=== PATIENT | female | born 1950 | race Caucasian/White ===

== ENCOUNTER 2018-09-29 16:11 | Inpatient (IN) | payer MEDICAID ==
[~2018-09-29] VITALS: Ht 160 cm; Wt 90.4 kg
[2018-09-29] MEDS ORDERED: PRAZOSIN HCL5 MG PO (16:59)
[2018-09-29] MEDS ORDERED: LIPITOR40 MG PO (17:01)
[2018-09-29] MEDS ORDERED: SERTRALINE HCL50 MG PO (17:02)
[2018-09-29] MEDS ORDERED: LISINOPRIL2.5 MG PO ×2 (17:03→19:26)
[2018-09-29] MEDS ORDERED: VITAMIN D2000 UNIT PO (17:04)
[2018-09-29] MEDS ORDERED: BENZTROPINE MESY2 MG PO ×2 (17:04→19:27)
[2018-09-29] MEDS ORDERED: JANUMET XR 1001 EACH PO ×2 (17:05→19:29)
[2018-09-29] MEDS ORDERED: ZYPREXA20 MG PO ×2 (17:06→19:31)
[2018-09-29] MEDS ORDERED: CLARITIN10 MG PO ×2 (17:07→19:31)
[2018-09-29] MEDS ORDERED: FEOSOL325 M1 PO (17:09)
[2018-09-29] MEDS ORDERED: LIPITOR80 MG PO (17:11)
[2018-09-29] MEDS ORDERED: ASPIR 8181 MG PO (17:12)
[2018-09-29] MEDS ORDERED: MACRODANTIN100 MG PO (17:13)
[2018-09-29 18:25] VITALS: BP 133/76
[2018-09-29] MEDS ORDERED: ZOLOFT50 MG PO (19:25)
[2018-09-29] MEDS ORDERED: VITAMIN D3400 UNIT PO (19:28)
[2018-09-29] MEDS ORDERED: NAMZARIC 7 MG-1 EACH PO (19:33)
[2018-09-29] MEDS ORDERED: IRON325 PO (19:34)
[2018-09-29 21:15] VITALS: BP 133/73
--- NOTE | 2018-09-29 23:54 | NUR ---
PATIENT ARRIVED ON DAY SHIFT AT 1824 PER WHEELCHAIR VAN FROM [facility]. PATIENT DX IS TIA/RIGHT HEMEPARESIS WITH DYSARTHIA. PATIENT SPEAKS SOFTLY AND SLOWLY. PATIENT ABLE TO MAKE NEEDS KNOWN AND FOLLOWS COMMANDS WITHOUT DIFFICULTY. SWALLOWED BEDTIME MEDICATIONS WHOLE TWO A TIME WITH WATER WITHOUT DIFFICULTY. PATIENT IS ILLITERATE. DAUGHTER HAS DURABLE POWER OF ASSISTANT HALL DIRECTOR. REHAB ADMISSION TOOL COMPLETED WITH ASSISTANCE OF DAUGHTER LEX PATIENT AND MEDICAL RECORDS. PATIENT ISN'T A GOOD HISTORIAN AT TIMES. DENIES DISCOMFORT. SNACK PROVIDED. HAS HOME MEDICATIONS STORED IN PHARMACY.
[2018-09-30 05:10] LABS: HEMATOCRIT 37.8 % (37.0-47.0); HEMOGLOBIN 12.8 gm/dL (12.0-15.0); MCH 28.9 pg (26.0-34.0); MCHC 33.8 g/dL (28.0-37.0); MCV 85.7 fL (80.0-100.0); MPV 8.6 fl. (7.2-11.1); RBC 4.41 mil/uL (4.20-5.00); RDW-CV 14.6 % (10.5-14.5); WBC 7.6 thou/uL (4.0-11.0)
[2018-09-30 05:17] LABS: CALCIUM 9.3 mg/dL (8.5-10.1); CREATININE 0.8 mg/dL (0.6-1.3); POTASSIUM 3.4 mmol/L (3.5-5.1)
--- NOTE | 2018-09-30 05:27 | NUR ---
RESTED QUIETLY. TURNS SELF IN BED. NO COMPLAINTS VOICED. HOURLY ROUNDING IN PROGRESS.
--- NOTE | 2018-09-30 13:54 | NUR ---
AM ASSESSMENT AND VITAL SIGNS COMPLETED DOCUMENTED. PT IS VERY SOFT SPOKEN AND HAS SOME DIFFICULTY WITH WORD FINDING. PT ALSO HAS A HX OF DEMENTIA AND BIPOLAR AND IS ORIENTED TO HERSELF ONLY. PT STATES SHE IS WAITING FOR HER DAUGHTER TO PICK HER UP AND TAKE HER TO A DIFFERENT HOSPITAL. PT REORIENTED BUT DOESN'T RETAIN THE INFORMATION. FALL PRECAUTIONS AND HOURLY ROUNDING CONTINUE.
[2018-09-30 20:05] VITALS: BP 136/60
--- NOTE | 2018-09-30 20:05 | NUR ---
RESTING QUIETLY IN BED AND WATCHING TV. DENIES DISCOMFORT. SNACK PROVIDED.
--- NOTE | 2018-10-01 05:36 | NUR ---
RESTED QUIETLY. NO COMPLAINTS VOICED. HOURLY ROUNDING IN PROGRESS.
[2018-10-01 08:00] VITALS: BP 125/67
--- NOTE | 2018-10-01 18:48 | NUR ---
AM ASSESSMENT AND VITAL SIGNS COMPLETED DOCUMENTED. PT WAS INCONTINENT OF A LARGE BM THIS AM AND CONTINENT OF ANOTHER BM LATER IN THE MORNING. PT IS PLEASANT AND COOPERATIVE, NO C/O PAIN OR DISCOMFORT. FALL PRECAUTIONS AND HOURLY ROUNDING CONTINUE.
[2018-10-01 19:40] VITALS: BP 114/53
--- NOTE | 2018-10-02 00:44 | NUR ---
ASSUMED CARE @ 1934-10/01-TUESDAY.HOB UP.WATCHING TV.BED ALARM PUT ON @ 1934. WORD FINDING DIFFICULTY PERSISTING.SBA FOR ALL TRANSFERS & TOILETING.WEARS PULL UPS.WANTS BATHRROM LIGHT ON & SIDERAILS X2 UP @ NIGHT.ON HOURLY ROUNDS.
--- NOTE | 2018-10-02 05:20 | NUR ---
SLEPT LATE SINCE 2300 & SLEPT GOOD ALL NIGHT.TURNS SELF @ NIGHT.BRP W/ SBA X2. PULL UPS CHANGED 1X @ 0020.TOOK ALL DIET COLA & ORANGE SHERBET HS SNACKS. BED ALARM SOUNDED ONCE ONLY @ 2019.PATIENT SITTING SIDE OF BED @ THIS TIME- READY TO STAND UP TO GO TO BATHROOM.INSTRUCTED TO CALL NURSE FOR ASSIST TO AMBULATE TO BATHROOM.
[2018-10-02 07:49] VITALS: BP 141/68
--- NOTE | 2018-10-02 13:13 | NUR ---
Nutrition: Pt admitted to Rehab s/p TIA. PMHx: MR, dementia. Pt having word-finding trouble. Consult received for new pt, DM. +BM today, eating 90-100% of CHO controlled diet. Wt: 202#. BG 151, no albumin recorded. No nutrition interventions needed at this time. Low risk.
--- NOTE | 2018-10-02 14:54 | NUR ---
SW met with pt to complete initial assessment, introduce self, and SW role. Pt alert, oriented, resting in bed. Pt lives alone. Pt dtr is supportive. Pt has HH services, pt did not recall name of agency. Pt has a stander walker (no wheels). DON called and spoke with pt dtr Sheryl [phone] and Sheryl wants to explore FDC options. SW discussed some [facility] options that may work with Medicaid and the dtr plans to contact a few of them for the possibility that pt may need ELIZABETH in the future. SW to continue to follow to assist with safe dc planning.
--- NOTE | 2018-10-02 18:07 | NUR ---
pt has participated with therapies and ambulates with walker,gaitbelt and min assist of 1. pt continent of bladder and wears pull ups.pt denies pain or nausea. pt is plesant but quiet,alert and orientated.pt eats meals in dinningroom.hourly rounding continues.
[2018-10-02 20:00] VITALS: BP 123/58
--- NOTE | 2018-10-03 05:16 | NUR ---
ASSUMED PT CARE AT 1930 PT ALERT AND ORIENTED X4, POLITE AND COOPERATIVE WITH CARES. PT TAKES PILLS WHOLE WITH WATER WITHOUT DIFFICULTY. PT ALREADY IN BED ASLEEP AT SHIFT CHANGE. PT WEARS PULLUPS. UP TO BATHROOM WITH ASSIST OF ONE, GAIT BELT AND WALKER. NO COMPLAINTS OF PAIN. USES CALL LIGHT APPROPRIATELY. HOURLY ROUNDING IN PROGRESS, WILL CONTINUE TO MONITOR.
[2018-10-03 07:44] VITALS: BP 123/73
--- NOTE | 2018-10-03 18:22 | NUR ---
PT HAS WORKED WITH THERAPIES AND AMBULATED WITH WALKER AND MIN ASSIST WITH GAITBELT TO AND FROM DINNINGROOM. PT TOLERATES MEALS AND IS ENCOURAGED TO DRINK FOR GOOD OUTPUT. PT WAS BLADDER SCANNED THIS AFTERNOON WITH 214ML URINS NOTED PER REQUEST.PT DOES CALL FOR ASSIST TO BATHROOM AND IS ABLE TO CLEASNE SELF AND ADJUST CLOTHING. PT DENIES PAIN OR NAUSEA AND IS ALERT AND ORIENTATED. HOURLU ROUNDING CONTINUES.
[2018-10-03 20:23] VITALS: BP 172/58
--- NOTE | 2018-10-03 20:25 | NUR ---
SITTING UP IN RECLINER WATCHING TV. DENIES DISCOMFORT. AMBULATED TO THE BATHROOM WITH SBA, GAITBELT, WALKER. DOES OWN HYGIENE AND CLOTHING ADJUSTMENTS. SNACK PROVIDED.
--- NOTE | 2018-10-04 05:14 | NUR ---
RESTED QUIETLY ALL NIGHT. NO COMPLAINTS VOICED. HOURLY ROUNDING IN PROGRESS.
[2018-10-04 08:00] VITALS: BP 153/72
--- NOTE | 2018-10-04 11:14 | NUR ---
AM ASSESSMENT AND VITAL SIGNS COMPLETED DOCUMENTED. PT HAS BEEN ALERT AND PLEASANT, COOPERATIVE WITH THERAPIES THIS AM. FALL PRECAUTIONS AND HOURLY ROUNDING CONTINUE.
--- NOTE | 2018-10-04 16:54 | NUR ---
SW met with pt to review team conference summary and plan for pt to remain on rehab unit at least another week with team to reassess pt length of stay during team conference next Wednesday 10/11. Pt okay with plan. SW called pt dtr Sheryl and reviewed team conference summary, plan to reteam, and team's recommendation for SHELTER at dc. Pt dtr Sheryl called a couple of places but they do not accept Medicaid, pt dtr did not want to look at [facility] although facility is SHELTER, pt felt it was more "like a assisted" and pt dtr wants pt to be around more indepenent residents in an SHELTER that was not total care. SW to present more SHELTER options to pt dtr this week and SW to continue to follow to assist with safe dc planning.
--- NOTE | 2018-10-04 18:45 | NUR ---
PT REMAINS STABLE AND WITHOUT COMPLAINTS. PT AMBULATES TO THE DINING ROOM FOR MEALS AND INTERACTS WITH OTHERS DURING MEALS. PT IS WEARING A BRIEF FOR OCCASIONAL INCONTINENCE OF BOWEL AND BLADDER, NO ACCIDENTS THIS SHIFT.
[2018-10-04 20:10] VITALS: BP 129/51
--- NOTE | 2018-10-05 05:04 | NUR ---
ASSUMED PT CARE AT 1930. PT ALERT AND ORIENTED X4, POLITE AND COOPERATIVE WITH CARES. PT TAKES PILLS WHOLE WITH WATER WITHOUT DIFFICULTY. PT WEARS PULLUPS. PT UP TO BATHROOM WITH ASSIST OF ONE, GAIT BELT AND WALKER. NO COMPLAINTS OF PAIN. PT SLEPT WELL OVERNIGHT. USES CALL LIGHT APPROPRIATELY. HOURLY ROUNDING IN PROGRESS, WILL CONTINUE TO MONITOR.
[2018-10-05 08:02] VITALS: BP 136/60
--- NOTE | 2018-10-05 15:02 | NUR ---
AM ASSESSMENT AND VITAL SIGNS COMPLETED DOCUMENTED. PT HAS BEEN PLEASANT AND COOPERATIVE, PARTICIPATES IN ALL THERAPIES. PRN TYLENOL GIVEN FOR C/O DELATORRE STRAIN AFTER PT SESSION, PT VERBALIZED ADEQUATE PAIN RELIEF. FALL PRECAUTIONS AND HOURLY ROUNDING CONTINUE.
--- NOTE | 2018-10-05 18:23 | NUR ---
PT CONTINUES TO USE THE CALL LIGHT APPROPRIATELY AND CONTINUES TO MAKE PROGRESS TOWARD DISCHARGE GOALS.
[2018-10-05 20:26] VITALS: BP 127/56
--- NOTE | 2018-10-06 05:25 | NUR ---
ASSUMED CARES AT 1920. ALERT AND ORIENTED. PLEASANT. DENIED ANY NEED FOR PAIN MEDS. TOOK PILLS WHOLE WITHOUT ISSUES. MIN ASSIST WITH GAIT BELT AND WALKER. UP TO BATHROOM. DOES OWN CARES. HS SNACK GIVEN. SLEPT WELL MOST OF THE NIGHT. CALL LIGHT IN REACH AND BED ALARM ON.
[2018-10-06 07:30] VITALS: BP 119/75
--- NOTE | 2018-10-06 18:14 | NUR ---
PT HAS EATEN IN DINNINGROOM AND CALLS FOR ASSIST NEEDS. PT DENIES PAIN. PT REMAINS CONTINENT OF B+B. PT AMBULATES WITH WALKER GAITBELT AND MIN ASSIST OF 1PT REMAINS ALERT AND ORIENTATED.HOURLY ROUNDING CONTINUES.
[2018-10-06 20:00] VITALS: BP 114/67
--- NOTE | 2018-10-07 05:23 | NUR ---
ASSUMED CARES AT 1920. ALERT AND ORIENTED. PLEASANT. C/O LEFT SHOULDER/ARM PAIN. APAP GIVEN. MIN ASSIST WITH GAIT BELT AND WALKER. UP TO BATHROOM. DID HAVE LOOSE STOOLS X 3 AT BEDTIME. NEEDED ASSIST WITH PERICARES. SLEPT WELL REST OF THE NIGHT. CALL LIGHT IN REACH AND BED ALARM ON.
[2018-10-07 08:00] VITALS: BP 133/72
--- NOTE | 2018-10-07 16:37 | NUR ---
ASSUMMED CARE OF PT AT 0730, ALERT, FORGETFUL, FLAT AFFECT, TRANSFERS WITH ASSIST OF 1, GB WALKER CUEING, AMBULATED TO DININGROOM, VOIDS PER BATHROOM, DENIED PAIN THIS SHIFT, TAKING FOOD AND FLUIDS WELL, NEEDED ENCOURAGEMENT TO SIT IN CHAIR, WANTS TO LAY IN BED RATHER THAN BE UP IN CHAIR, PARTICIPATED IN ALL THERAPIES, HOURLY ROUNDING COMPLETED, ASSESSMNET COMPLETE, WILL CONTINUE TO MONITOR.
[2018-10-07 19:30] VITALS: BP 129/53
--- NOTE | 2018-10-07 19:35 | NUR ---
RESTING QUIETLY IN BED. TYLENOL GIVEN FOR COMPLAINT OF PAIN IN LEFT SHOULDER. SNACK PROVIDED.
--- NOTE | 2018-10-08 05:16 | NUR ---
NO FURTHER COMPLAINT OF PAIN. UP X ONE DURING THE NIGHT TO THE BATHROOM. HAD A SMALL LOOSE STOOL. DID OWN INÉS CARE AND CLOTHING ADJUSTMENTS. AMBULATES WITH SBA, GAITBELT, WALKER. HOURLY ROUNDING IN PROGRESS.
[2018-10-08 08:17] VITALS: BP 122/62
--- NOTE | 2018-10-08 16:34 | NUR ---
UP TO RESTROOM WITH ROLLING WALKER STAND BY ASSIST. REQUIRES NO HELP WITH HYGIENE. ALERT AND ORIENTED X 4, DENIES COMPLAINTS OF PAIN OR DISCOMFORT. NO SIGN OF DISTRESS. CONT. WITH CURRENT PLAN OF CARE.
[2018-10-08 20:00] VITALS: BP 102/48
--- NOTE | 2018-10-08 20:00 | NUR ---
RESTING QUIETLY IN BED AND WATCHING TV. TYLENOL GIVEN FOR LEFT SHOULDER PAIN. SNACK PROVIDED. AMBULATED TO THE BATHROOM WITH SBA, GAITBELT, WALKER. DOES OWN HYGIENE AND CLOTHING ADJUSTMENTS.
--- NOTE | 2018-10-09 04:57 | NUR ---
RESTED QUIETLY. NO FURTHER COMPLAINT OF PAIN. HOURLY ROUNDING IN PROGRESS.
[2018-10-09 08:09] VITALS: BP 125/54
--- NOTE | 2018-10-09 12:07 | NUR ---
SW received call from pt dtr Sheryl regarding dc planning and other [facility]ETH options. SW informed of [facility] not able to accept Medicaid any longer (phasing out Medicaid payment unless pt private pays for 2 years first). [facility] in [place] does not have any rooms available right now; pt could be on waiting list except pt dtr explained pt would not be able to pay the difference of what Medicaid would cover $156/mn and pt would still need to pay $2,030 to $2,250 per month. Pt dtr expressed wanting to explore other [facility]ETH even if it wasn't [facility] and pt dtr again does not want pt to dc to LTC facility. SW suggested [facility] and pt dtr open to option. DON called and spoke with automobile and property underwriter Barbara [phone] and faxed referral info; Joni is shopper marketing manager [phone]. Pt dtr also said that she was going to ask one of her friends where friend's mom lives that might be an option. SW to continue to follow to assist with safe dc planning.
--- NOTE | 2018-10-09 17:05 | NUR ---
pt has participated with therapies and ambulates with walker,gaitbelt and sba of 1. pt eats meals in dinningroom. pt continent of b+b. pt remains alert and orientated and calls for assist as needs. hourly rounding continues.
[2018-10-09 20:15] VITALS: BP 117/57
--- NOTE | 2018-10-09 20:15 | NUR ---
LEFT HUMERUS AND SHOULDER XRAYS DONE. PATIENT WAS TAKEN DOWNSTAIRS TO XRAY BY TWO XRAY TECHS. ROOM TOO SMALL TO DO PORTABLE. TYLENOL GIVEN FOR COMPLAINT OF LEFT SHOULDER PAIN RATED "9". SITTING UP IN RECLINER WITH LEGS ELEVATED. SNACK PROVIDED.
--- NOTE | 2018-10-10 05:22 | NUR ---
RESTED QUIETLY. NO COMPLAINTS VOICED. HOURLY ROUNDING IN PROGRESS.
[2018-10-10 07:33] VITALS: BP 141/70
--- NOTE | 2018-10-10 15:51 | NUR ---
DON called pt dtr Sheryl in preparation for team conference tomorrow and Sheryl did not answer so DON left a detailed message and requested call back with any questions or to follow up. DON also mentioned DON sent information to [facility] per dtr request and that DON will continue to follow to assist with safe dc planning.
--- NOTE | 2018-10-10 16:58 | NUR ---
PT HAS PARTICIPATED WITH THERAPIES AND AMBULATES WITH WALKER,GAITBELT AND SBA OF 1 TO BATHROOM AND DINNINGROOM. PT IS ALERT AND ORIENTATED. PT TOLERATES MEALS AND EATS IN DINNINGROOM.PT REMAINS CONTINENT OF B+B.HOURLY ROUNDING CONTINUES.
[2018-10-10 20:15] VITALS: BP 86/48
--- NOTE | 2018-10-11 00:58 | NUR ---
INITAL ASSESMENT COMPLETED AT 2014. PT ASSISTED TO BATHROOM AT THAT TIME USING GAIT BELT AND WALKER. PT DENIED PAIN OR DISCOMFORT AT THAT TIME. CALL LIGHT IN REACH, BED ALARM ON. ALL FALL PRECAUTIONS IN PLACE. FREQUENT VISUAL CHECKS DONE.
--- NOTE | 2018-10-11 06:44 | NUR ---
PT PROGRESSING TOWARD GOALS. PT UP TO RESTROOM USING WALKER. GAIT IS STEADY AND PURPOSEFUL. PT REQUIRES VISULA SUPERVISION ONLY WITH ADL'S AND AMBULATING. NO ACUTE CHANGES DURING SHIFT, VITAL SIGNS WITHIN NORMAL LIMITS. BED ALARM ON, CALL LIGHT IN REACH.
[2018-10-11 07:36] VITALS: BP 148/60
[2018-10-11 14:33] LABS: URINE BILIRUBIN NEGATIVE (Negative); URINE BLOOD NEGATIVE (Negative); URINE CLARITY CLEAR; URINE COLOR YELLOW; URINE GLUCOSE-RANDOM NEGATIVE (Negative); URINE KETONES NEGATIVE (Negative); URINE LEUKOCYTES-REFLEX NEGATIVE (Negative); URINE NITRITE-REFLEX NEGATIVE (Negative); URINE PROTEIN NEGATIVE (Negative); URINE SPECIFIC GRAVITY <= 1.005 (1.005-1.030); URINE UROBILINOGEN 0.2 E.U./dl (0.2-1.0)
[2018-10-11 19:20] VITALS: BP 115/36
--- NOTE | 2018-10-11 19:20 | NUR ---
RESTING QUIELTY IN BED. TYLENOL GIVEN FOR COMPLAINT OF LEFT SHOULDER PAIN RATED "8". SNACK PROVIDED. CALL LIGHT WITHIN REACH.
[2018-10-12 04:31] LABS: HEMATOCRIT 35.8 % (37.0-47.0); HEMOGLOBIN 11.9 gm/dL (12.0-15.0); MCH 28.5 pg (26.0-34.0); MCHC 33.2 g/dL (28.0-37.0); MCV 86.1 fL (80.0-100.0); MPV 9.2 fl. (7.2-11.1); RBC 4.15 mil/uL (4.20-5.00); RDW-CV 14.7 % (10.5-14.5)
[2018-10-12 04:41] LABS: CREATININE 0.8 mg/dL (0.6-1.3); POTASSIUM 3.8 mmol/L (3.5-5.1)
[2018-10-12 04:58] LABS: MAGNESIUM 0.9 mg/dL (1.8-2.4)
--- NOTE | 2018-10-12 05:40 | NUR ---
HAD LARGE AMOUNT OF BROWN AND GREEN DIARRHEA BETWEEN 2140 AND 2240 X 3 THEN RESTED QUIETLY THE REMAINDER OF THE NIGHT. CRITICAL LAB OF 0.9 REPORTED BY LAB. ORDER RECEIVED. NOTIFIED PHARMACY OF ORDER PUT IN BY AWAITING PHARMACY TO PROCESS ORDER PRIOR TO GIVING REPLACING MG+ VIA ELECTROLYTE PROTOCOL. HOURLY ROUNDING IN PROGRESS.
[2018-10-12 08:00] VITALS: BP 139/57
--- NOTE | 2018-10-12 12:05 | NUR ---
SW met with pt to review team conference summary and plan for pt to dc on Monday 10/16. Pt thought that she would dc sooner but still agreed with plan. DON spoke with pt dtr yesterday and today and reviewed team conference summary and plan as well as continuing to finalize INTERMEDIATE for dc. Pt dtr interested in [facility], [facility], [facility], and pt dtr said she could call [facility] (as was an option presented earlier). SW faxed info to [facility] and [facility] (may or may not have an available apt on Tuesday). Pt only has standard walker without wheels; SW to possibly arrange for a walker with wheels if pt is eligible for another walker through insurance. SW to continue to follow to assist with safe dc planning.
--- NOTE | 2018-10-12 17:12 | NUR ---
pt has participated with therapies and calls for assist with ambulation. pt has been continent of b+b today. pt alert and orientated and eats meals in dinningroom. hourly rounding continues.
[2018-10-13 05:11] LABS: CREATININE 0.8 mg/dL (0.6-1.3); MAGNESIUM 1.3 mg/dL (1.8-2.4); POTASSIUM 4.1 mmol/L (3.5-5.1)
--- NOTE | 2018-10-13 05:17 | NUR ---
ASSUMED PT CARE AT 1930. PT ALERT AND ORIENTED X4, POLITE AND COOPERATIVE WITH CARES. DENIES PAIN. PT TAKES PILLS WHOLE WITH WATER WITHOUT DIFFICULTY. UP ONCE WITH SBA, GAIT BELT AND WALKER TO BATHROOM TO VOID. NO STOOL THIS SHIFT. PT SLEPT WELL OVERNIGHT. CALL LIGHT AND FREQUENTLY USED ITEMS WITHIN REACH. HOURLY ROUNDING IN PROGRESS, WILL CONTINUE TO MONITOR.
[2018-10-13 09:43] VITALS: BP 141/64
--- NOTE | 2018-10-13 18:57 | NUR ---
UNEVENTFUL DAY. WITHOUT COMPLAINTS. NO SIGN OF DISTRESS. PLANNED D/C ON TUESDAY. USING ROLLING WALKER WITH SUPERVISION ONLY.
[2018-10-13 20:00] VITALS: BP 100/58
--- NOTE | 2018-10-14 05:19 | NUR ---
ASSUMED PT CARE AT 1930. PT ALERT AND ORIENTED X4, POLITE AND COOPERATIVE WITH CARES ANTICIPATING DISCHARGE ON TUESDAY. DENIES PAIN. PT TAKES PILLS WHOLE WITH WATER WITHOUT DIFFICULTY. UP WITH SBA, GAIT BELT AND WALKER X2 TO VOID. STOOL X1 THIS SHIFT. PT SLEPT WELL OVERNIGHT. CALL LIGHT AND FREQUENTLY USED ITEMS WITHIN REACH. HOURLY ROUNDING IN PROGRESS, WILL CONTINUE TO MONITOR.
[2018-10-14 07:54] VITALS: BP 127/64
--- NOTE | 2018-10-14 18:21 | NUR ---
PT HAS BEEN PLEASANT AND COOPERATIVE, NO COMPLAINTS THIS SHIFT. DISCHARGE PLAN IN PROGRESS FOR TUESDAY. FALL PRECAUTIONS AND HOURLY ROUNDING CONTINUE.
[2018-10-14 20:20] VITALS: BP 120/53
--- NOTE | 2018-10-15 05:01 | NUR ---
ASSUMED PT CARE AT 1930. PT ALERT AND ORIENTED X4, POLITE AND COOPERATIVE WITH CARES. ANTICIPATING DISCHARGE ON TUESDAY. DENIES PAIN. TAKES PILLS WHOLE WITH WATER WITHOUT DIFFICULTY. UP WITH SBA, GAIT BELT AND WALKER TO VOID. NO STOOL THIS SHIFT. PT SLEPT WELL OVERNIGHT. CALL LIGHT AND FREQUENTLY USED ITEMS WITHIN REACH. HOURLY ROUNDING IN PROGRESS, WILL CONTINUE TO MONITOR.
[2018-10-15 07:35] VITALS: BP 148/66
--- NOTE | 2018-10-15 18:27 | NUR ---
PT CONTINUES TO BE A/O, PLEASANT AND COOPERATIVE. PT IS ABLE TO AMBULATE WITH A FRONT WHEEL WALKER, TAKES HER PILLS WITHOUT DIFFICULTY AND HAS BEEN CONTINENT TODAY. FALL PRECAUTIONS AND HOURLY ROUNDING CONTINUE.
[2018-10-15 19:52] VITALS: BP 110/55
--- NOTE | 2018-10-16 02:18 | NUR ---
ASSUMED CARE @ 1944-10/15-TUESDAY.AWAKE.BED ALARM ALREADY ON @ 1944.WANTS BATHROOM LIGHT ON ALL NIGHT.REFUSED HS LOVENOX.WANTS TO SLEEP IN CLOTHES. ON HOURLY ROUNDS.HOME HEALTH PROVIDER DOING ODD HOUR ROUNDS.TURNS SELF @ NIGHT.
--- NOTE | 2018-10-16 05:10 | NUR ---
SLEPT EARLY & SLEEPING SINCE 2049.HAS NOT VOIDED YET SINCE ASSUMED CARE @ 194.TOOK ALL ANNA.ICE CREAM X2 HS SNACKS.PLAN TO DISHARGE PATIENT TODAY- 10/16-TUESDAY.STILL LOOKING FOR PLACEMENT.
[2018-10-16 07:47] VITALS: BP 152/63
--- NOTE | 2018-10-16 16:48 | NUR ---
DON spoke with pt dtr Sheryl multiple times throughout the day to discuss safe dc planning. Due to attempting to secure INTERMEDIATE for dc not happening and no assurance that pt would have 24/7 supersvision/stand by assistance, pt unable to dc today. SW called the other two INTERMEDIATE possible options (as pt only has Medicaid and limited finances) and [facility] does not have any availability, [facility] did not return call. DON expressed pt may need to go to LTC after all and pt dtr resistant to this idea again. Pt dtr wants to try to have in home caregivers time increased and check on her more often as well as HH initially from hospital at dc, but pt would still be alone at times and at night. SW discussed with team and team's recommendation continues to be that pt would need 24/7 care. SW called pt dtr back again and left a message stating this and asked if pt dtr could live with pt or vice versa and for in home assistance to be there when pt dtr is not there and presented that otherwise, the LTC option would be an alternative. SW to follow up again in the morning; possible for dc tomorrow pending finalizing safe dc plan agreement.
--- NOTE | 2018-10-16 16:53 | NUR ---
ASSUMMED CARE OF PT AT 0730, PT ALERT, FORGETFUL, TRANSFERS WITH SBA, GB WALKER, ANBULATES TO BATHROOM, AMBULATED TO DININGROOM, DENIES PAIN, TAKING FOOD AND FLUIDS WELL, USES CALL LIGHT APPROPRIATELY ALL SHIFT, PARTICIPATED IN ALL THERAPIES, HOURLY ROUNDING COMPLETED, ASSESSMENT COMPLETE, WILL CONTINUE TO MONITOR.
[2018-10-16 20:00] VITALS: BP 128/66
--- NOTE | 2018-10-17 05:20 | NUR ---
ASSUMED PT CARE AT 1930. PT ALERT AND ORIENTED X4, POLITE AND COOPERATIVE WITH CARES. DENIES PAIN. TAKES PILLS WHOLE WITH WATER WITHOUT DIFFICULTY. UP TO BATHROOM TO VOID WITH SBA, GAIT BELT AND WALKER. NO STOOL THIS SHIFT. PT SLEPT WELL OVERNIGHT. USED CALL LIGHT APPROPRIATELY. CALL LIGHT AND FREQUENTLY USED ITEMS WITHIN REACH. BED ALARM ON FOR SAFETY. HOURLY ROUNDING IN PROGRESS, WILL CONTINUE TO MONITOR.
[2018-10-17 09:33] VITALS: BP 123/68
--- NOTE | 2018-10-17 16:28 | NUR ---
pt has participated with therapies and calls for assist as needs. pt denies pain. pt ambulates with walker and gaitbelt with sba of 1. pt is continent of b+b.pt eats meals in dinningroom.pt remains alert and orientated.hourly rounding continues.
[2018-10-17 20:00] VITALS: BP 139/53
[2018-10-18 03:59] LABS: ABSOLUTE EOSINOPHILS 0.3 thou/uL (0.0-0.7); ABSOLUTE LYMPHOCYTES 2.4 thou/uL (0.8-5.3); ABSOLUTE MONOCYTES 0.5 thou/uL (0.0-1.2); BASOPHILS 0.3 %; EOSINOPHILS 3.5 %; HEMATOCRIT 35.8 % (37.0-47.0); HEMOGLOBIN 12.1 gm/dL (12.0-15.0); MCHC 33.7 g/dL (28.0-37.0); MONOCYTES 7.4 %; MPV 8.7 fl. (7.2-11.1); NUCLEATED RBCS 0 /100WBC; PLATELET COUNT* 205 thou/uL (150-400); POLYS 55.8 %; RBC 4.17 mil/uL (4.20-5.00); WBC 7.2 thou/uL (4.0-11.0)
[2018-10-18 04:11] LABS: CALCIUM 9.3 mg/dL (8.5-10.1); CREATININE 0.8 mg/dL (0.6-1.3); MAGNESIUM 1.4 mg/dL (1.8-2.4); POTASSIUM 3.9 mmol/L (3.5-5.1)
--- NOTE | 2018-10-18 05:34 | NUR ---
ASSUMED PT CARE AT 1930. PT ALERT AND ORIENTED X4, POLITE AND COOPERTIVE WITH CARES. DENIES PAIN. TOOK PILLS WHOLE WITH WATER WITHOUT DIFFICULTY. SNACK PROVIDED. UP TO BATHROOM TO VOID WITH SBA, GAIT BELT AND WALKER. PT SLEPT WELL OVERNIGHT. USED CALL LIGHT APPROPRIATELY. CALL LIGHT AND FREQEUNTLY USED ITEMS WITHIN REACH. HOURLY ROUNDING IN PROGRESS, WILL CONTINUE TO MONITOR.
[2018-10-18 08:00] VITALS: BP 135/57
--- NOTE | 2018-10-18 16:08 | NUR ---
Team conference held today. Team reported pt to have a slight improvement in FIMs from last week to this week. Plan is for pt to dc [facility] when finalization of placement is confirmed. ([facility] rejected referral and no ALFs were available or accepting or affordable for pt). DON followed up with [facility] and they had given the last available room away to a different family who expressed more interest and more shelter commitment than what pt and Sheryl expressed. SW called [facility] and admissions said that they dtr said she no longer needed that possibility; they were going to need life insurance policy info if there was a shultz value or not. DON spoke with Sheryl who said that she would refuse for pt to go to [facility]. Sheryl wanted SW to send referral to [facility]; SW faxed referral and 11 am. DON called [facility] at 2:20 and left a message and at 3:45 finally spoke with [facility] who said that they would possibly be able to accept pt but not today due to Melanie in admissions not being available and she would be the one who handled the financial aspect of the admissions. DON called pt dtr Sheryl back and said that the dc would not be able to be today due to [facility] response still pending. DON asked about pt dtr having pt stay with pt dtr for a while but pt dtr said that would not be an option due to their living situation not conducive for pt needs. DON asked about other options but pt dtr said that she would try to think of any others but hopeful that [facility] would be an option tomorrow. SW to continue to follow to assist with safe dc planning/placement.
--- NOTE | 2018-10-18 18:36 | NUR ---
PT CALLS FOR SBA TO AMBULATE TO BATHROOM AND IS CONTINENT OF B+B. PT EATS MEALS IN DINNINGROOM. PT DENIES PAIN. PT HOPEING TO DISCHARGE SOON. HOURLY ROUNDING CONTINUES.
[2018-10-18 19:58] VITALS: BP 126/61
--- NOTE | 2018-10-19 01:34 | NUR ---
ASSUMED CARE @ 1944-.SITS IN TOILET.WEARS PULL UPS.SBA FOR ALL TRANSFERS & TOILETING.HOB UP.WANTS BATHROOM LIGHT ON ALL NIGHT.BED ALARM PUT ON @ 1949.WANTS TO SLEEP IN CLOTHES.ON HOURLY ROUNDS.
--- NOTE | 2018-10-19 05:27 | NUR ---
SLEEPING SINCE 2244 & SLEPT GOOD ALL NIGHT.AWAKE ONCE FOR BRP W/ SBA #2.TOOK ALL ANNA.ICE CREAM X2 HS SNACKS.TEMP @ 1957-.2 ORAL.TEMP. RE-CHECKED @ .7 ORAL.
[2018-10-19 08:00] VITALS: BP 121/59
--- NOTE | 2018-10-19 09:44 | NUR ---
AM ASSESSMENT AND VITAL SIGNS COMPLETED DOCUMENTED. PT ALERT AND PLEASANT, VERY COOPERATIVE. PT CONTINUES TO WORK WITH THERAPIES WHILE DISCHARGE PLANNING WORKS ON HER DISPOSITION. FALL PRECAUTIONS AND HOURLY ROUNDING CONTINUE.
--- NOTE | 2018-10-19 15:38 | NUR ---
FINE ARTIST INFORMED OF THE NEED TO SEND LTC REFERRAL'S TO [facility]. CM AWAITING RETURN CALL TO DISCUSS ABILITY TO ACCEPT THE PATIENT. CM WILL REMAIN AVAILABLE TO ASSIST AND FOLLOW NEEDED.
--- NOTE | 2018-10-19 16:13 | NUR ---
SW tried calling [facility] at 9:30 this morning and then 10:45 still with admissions not being available to speak with SW. DC material planner assisted in contacting and finally received response at 2:25 pm that [facility] would be unable to accept pt. SW received calls from pt dtr throughout the day and pt dtr provided other options of [facility] and [facility]. DC material planner faxed referral to the facilities. DON received call back from [facility] admissions, Sebastian who said that they would be able to accept pt tomorrow and that they would need copies of pt healthcare and financial DPOA and that pt dtr would need to meet with their business office. Pt dtr clarified that pt does not need RW ordered after all and pt walker actually does have wheels already. SW to continue to follow to assist with safe dc planning and LTC placement for tomorrow.
[2018-10-19 20:00] VITALS: BP 123/62
--- NOTE | 2018-10-20 05:45 | NUR ---
ASSUMED CARES AT 1920. ALERT AND ORIENTED. PLEASANT. DENIED ANY NEED FOR PAIN MEDS. TOOK PILLS WHOLE WITHOUT ISSUES. MIN ASSIST WITH GAIT BELT AND WALKER. UP TO BATHROOM. DOES OWN CARES. SLEPT WELL. NO ISSUES OVERNIGHT. CALL LIGHT IN REACH AND BED ALARM ON.
[2018-10-20 08:00] VITALS: BP 128/60
[2018-10-20 09:47] VITALS: BP 128/60
--- NOTE | 2018-10-20 10:54 | NUR ---
PT CARE ASSUMED THIS AM, ASSESSMENT AND VITAL SIGNS COMPLETED DOCUMENTED. PT IS SBA WITH AMBULATING TO THE BATHROOM WITH A WALKER, SUPERVISION WITH TOILETING AND GROOMING. PT DENIES DISCOMFORT THIS AM AND HAS A GOOD APPETITE. PT/OT AND ST TO CONTINUE. FALL PRECAUTIONS AND HOURLY ROUNDING IN PLACE.
--- NOTE | 2018-10-20 16:01 | NUR ---
DON spoke with pt yuridia Saucedo who provided first preference to be [facility] for LTC; SW faxed referral to [facility]. DON spoke with Amira Loyola who met with pt and then provided acceptance and approval for pt to admit to [facility] today and ride was arranged for 5:00 pm. DON called and left pt nadiar Sheryl a message. Chart copied. final orders/med list to be faxed upon completion.
--- NOTE | 2018-10-20 17:26 | NUR ---
DISCHARGE ORDERS RED'D AND FAXED TO [facility]. REPORT CALLED TO NURSE THAT WILL BE ADMITTING HER. [facility] A TRANSPORTER.
== END 2018-10-20 17:28 | DRG 69 ==
LOC: M.REH 16:11
PROVIDERS: Family Medicine; Internal Medicine; ADMIT Physical Medicine & Rehabilitation
DX: G45.9 Transient cerebral ischemic attack, unspecified (principal); I69.354 Hemiplegia and hemiparesis following cerebral infarction affecting left non-dominant side; N39.0 Urinary tract infection, site not specified; F31.5 Bipolar disorder, current episode depressed, severe, with psychotic features; N18.3 Chronic kidney disease, stage 3 (moderate); B96.20 Unspecified Escherichia coli [E. coli] as the cause of diseases classified elsewhere; R47.1 Dysarthria and anarthria; F03.90 Unspecified dementia, unspecified severity, without behavioral disturbance, psychotic disturbance, mood disturbance, and anxiety; F79 Unspecified intellectual disabilities; G24.01 Drug induced subacute dyskinesia; T50.995A Adverse effect of other drugs, medicaments and biological substances, initial encounter; I12.9 Hypertensive chronic kidney disease with stage 1 through stage 4 chronic kidney disease, or unspecified chronic kidney disease; I65.22 Occlusion and stenosis of left carotid artery; R47.81 Slurred speech; E11.22 Type 2 diabetes mellitus with diabetic chronic kidney disease; E11.65 Type 2 diabetes mellitus with hyperglycemia; E78.5 Hyperlipidemia, unspecified; D64.9 Anemia, unspecified; R53.81 Other malaise; M19.012 Primary osteoarthritis, left shoulder; E83.42 Hypomagnesemia; M62.838 Other muscle spasm; Z79.899 Other long term (current) drug therapy; Z83.3 Family history of diabetes mellitus; Z82.3 Family history of stroke; Y92.89 Other specified places as the place of occurrence of the external cause; Z79.84 Long term (current) use of oral hypoglycemic drugs; Z79.82 Long term (current) use of aspirin